=== PATIENT | female | born 1955 | race Caucasian/White ===

== ENCOUNTER 2019-07-09 13:37 | Day surgery (SDC) | payer OTHER, SELFPAY ==
--- NOTE | 2019-07-09 | PATH_ITS ---
[facility] Accession Number: [id number] . 01 Material submitted: . PART A: gastrointestinal site - GASTRIC BIOPSIES PART B: esophagus - ESOPHAGEAL BIOPSIES PART C: colon - ASCENDING COLON POLYP PART D: colon - TRANSVERSE COLON POLYP X4 PART E: colon - SIGMOID POLYPS X2 . 01 Clinical history: . B: R/O [facility]ORTH'S . 02 Diagnosis: A. Stomach, Biopsies: Body mucosa with no diagnostic abnormality. No evidence of Helicobacter organisms on H/E stain. Negative for intestinal metaplasia. Negative for dysplasia and malignancy. . B. Esophagus, Biopsies: Proximal gastric-type mucosa with mild chronic inflammation. Negative for specialized intestinal metaplasia, dysplasia or malignancy. . C. Ascending Colon, Polyp: Tubular adenoma. . D. Transverse Colon, Polyps: Fragments of tubular adenoma and fragments of hyperplastic polyp (four polyps removed). . E. Sigmoid Colon, Polyps: Tubular adenoma x2. [facility] 07/11/2019 1105 Local . 02 Electronically signed: . Deepak Knowles MD, PhD, Pathologist NPI- [id number] . 01 Gross description: . Part A: GASTRIC BIOPSIES: Received in formalin are 2 fragment(s) of ogden, soft tissue measuring 0.3 x 0.2 x 0.2 cm to 0.2 x 0.2 x 0.2 cm submitted entirely in 1 cassette(s) Part B: ESOPHAGEAL BIOPSIES: Received in formalin are 2 fragment(s) of ogden, soft tissue measuring 0.3 x 0.2 x 0.1 cm to 0.1 x 0.1 x 0.1 cm submitted entirely in 1 cassette(s) Part C: ASCENDING COLON POLYP: Received in formalin are multiple fragment(s) of ogden, soft tissue measuring 1.0 x 0.6 x 0.2 cm in aggregate submitted entirely in 1 cassette(s) Part D: TRANSVERSE COLON POLYP X4: Received in formalin are multiple fragment(s) of ogden, soft tissue measuring 1.5 x 0.7 x 0.4 cm in aggregate submitted entirely in 1 cassette(s) Part E: SIGMOID POLYPS X2: Received in formalin are multiple fragment(s) of ogden, soft tissue measuring 0.6 x 0.6 x 0.3 cm in aggregate submitted entirely in 1 cassette(s) /QBJ 07/10/2019 0707 Local . 02 Microscopic: . . . . 02 Pathologist provided ICD-10: K20.9, D12.2, D12.3, D12.5 . 02 CPT . 932672, 282518, 675866, 821396, 067368 Performed at: 01 LabCounts include 234 beds at the [facility] [address] [id number] MD Sebastián Alvarez MD Phone: [phone] Performed at: 02 [facility] [address] [place] [id number] MD Taylor Merchant MD Phone: [phone]
--- NOTE | 2019-07-09 12:05 | PM.HP.1 ---
History of Present Illness History of Present Illness Date Patient Seen: 07/09/19 Chief complaint: [id number] Narrative: GE reflux with intermittent dysphagia. Also possible history of colon polyps with intermittent rectal bleeding. Exam Narrative Exam Narrative: Oropharynx free of lesions Chest clear to auscultation percussion Cardiac exam reveals no S3 or murmur Assessment & Plan Assessment & Plan narrative: One. GERD with intermittent dysphagia rule out Schatzki's ring versus peptic esophagitis. Also with underlying elevated liver chemistries rule out varices. 2. History of colon polyps need for follow-up colonoscopy. Intermittent rectal bleeding Risks, benefits, alternatives have been explained. Further recommendation will follow the results of the studies.
--- NOTE | 2019-07-09 12:07 | PM.OP.ENDO ---
Operative Date/Time/Diagnoses Date of procedure: 07/09/19 Pre-op diagnosis: See indication and findings Procedure & Clinicians Study performed: After informed consent was obtained the patient was placed in left lateral decubitus position. The video upper scope was placed into the oropharynx with the patient's help swallowed into the esophagus. The esophagus, stomach, duodenum were carefully examined. On withdrawal retroflexed view the GE junction was performed. The scope was removed. The patient tolerated procedure well. The patient was then turned and the colonoscope substituted. This was introduced the rectum slowly advanced to the cecum. Preparation was good. On slow withdrawal mucosa was carefully examined. The scope was removed. The patient tolerated the procedure well. Blood loss none Complications none Sedation Monitored anesthesia care Findings EGD 1. One 2 cm long tongue of salmon-colored mucosa above squamocolumnar junction. Two biopsies taken in 1 bottle to rule out Diallo's esophagus. 2. No evidence of esophagitis present 3. Scattered 3-4 mm polyps throughout the body of the stomach biopsied. 4. Streaky gastric erythema in the antrum. Biopsies taken to rule out Helicobacter. These biopsies were placed in the same bottle as 3. 5. Normal duodenal bulb and sweep Colonoscopy 1. Extensive sigmoid diverticulosis-is severe. 2. Ascending colon polyp approximately 5 mm Jumbo biopsy removed completely 3. Three polyps in the transverse colon ranging from 3-4 mm in size Jumbo biopsy removed completely. 4. One transverse colon polyp approximately 2 cm in size and pedunculated. This was hot snared and removed completely. All parts of the polyp were retrieved. This was same bottle as 3. 5. 5 mm sigmoid polyp Jumbo biopsy removed completely 6. 1.2 cm pedunculated sigmoid colon polyp hot snared removed completely. This was placed in the same bottle as 5. Lidia will need follow-up colonoscopy in 3 years.
[2019-07-09 14:06] VITALS: BP 187/76; PULSE 88; RESP 20; TEMP 36.8; O2SAT 96; BMI 23.3
[2019-07-09] MEDS: SODIUM CHLORIDE 0.9% 1,000 ML 42 ML IV (14:13)
[2019-07-09 15:27] VITALS: BP 152/81; PULSE 79; RESP 16; TEMP 36.3; O2SAT 99
[2019-07-09 15:30] VITALS: BP 162/74; PULSE 77; RESP 13; TEMP 36.4; O2SAT 99
[2019-07-09 15:35] VITALS: BP 159/77; PULSE 73; RESP 10; TEMP 36.3; O2SAT 98
[2019-07-09 15:57] VITALS: BP 158/76; PULSE 65; RESP 16; TEMP 36.5; O2SAT 100
== END 2019-07-09 16:12 | disposition home or self-care (01) ==
PROVIDERS: PCP Internal Medicine; Visit Provider Internal Medicine Gastroenterology
PROC: 0DJ08ZZ Inspection of Upper Intestinal Tract, Via Natural or Artificial Opening Endoscopic (ICD-10-PCS; CPT 43235; principal; 2019-07-09 15:00)
PROC: 0DJD8ZZ Inspection of Lower Intestinal Tract, Via Natural or Artificial Opening Endoscopic (ICD-10-PCS; CPT 45378; 2019-07-09 15:00)
DX: K20.9 Esophagitis, unspecified (principal); K21.9 Gastro-esophageal reflux disease without esophagitis; K57.30 Diverticulosis of large intestine without perforation or abscess without bleeding; D12.2 Benign neoplasm of ascending colon; D12.3 Benign neoplasm of transverse colon; D12.5 Benign neoplasm of sigmoid colon
CPT/HCPCS: 45385; 45380; 43239

== ENCOUNTER → 2022-01-27 13:57 | Outpatient (CLI) | payer OTHER, SELFPAY ==
[2022-01-27 17:26] LABS: COVID19 -Nasal RAPID Negative (Negative)
== END ==
PROVIDERS: PCP Internal Medicine; Visit Provider Surgery
DX: Z20.822 Contact with and (suspected) exposure to COVID-19 (principal); Z01.812 Encounter for preprocedural laboratory examination
CPT/HCPCS: 87635; C9803

== ENCOUNTER 2022-01-30 12:09 | Day surgery (SDC) | payer OTHER, SELFPAY ==
[2022-01-30] VITALS (7 sets, daily range): BP systolic 128–170; BP diastolic 68–87; PULSE 62–76; RESP 11–20; TEMP 36.3–36.7; O2SAT 98–100; BMI 24.7
--- NOTE | 2022-01-30 | PATH_ITS ---
[facility] Accession Number: [id number] No. of containers..03 Tissue . 01 Material submitted: . PART A: cecum - CECAL POLYP PART B: splenic flexure - SPLENIC FLEXURE POLYP PART C: rectosigmoid junction - RECTO-SIGMOID POLYPS . 01 Diagnosis: A. Cecum, Polyp, Biopsy: Sessile serrated adenoma. Additional levels were examined. . B. Splenic Flexure, Biopsy: Tubular adenoma. . C. Rectosigmoid Colon, Polyps, Biopsies: Hyperplastic polyps. [facility] 02/01/2022 1410 Local . 01 Electronically signed: . Taylor Merchant MD, Pathologist NPI- [id number] . 01 Gross description: . Part A: CECAL POLYP: Received in formalin is 1 fragment(s) of ogden, soft tissue measuring 0.5 x 0.3 x 0.1 cm submitted entirely in 1 cassette(s) Part B: SPLENIC FLEXURE POLYP: Received in formalin is 1 fragment(s) of ogden, soft tissue measuring 0.2 x 0.2 x 0.2 cm submitted entirely in 1 cassette(s) Part C: RECTO-SIGMOID POLYPS: Received in formalin are 2 fragment(s) of ogden, soft tissue measuring 0.2 x 0.2 x 0.2 cm to 0.1 x 0.1 x 0.1 cm submitted entirely in 1 cassette(s) /QBJ 01/31/2022 0712 Local . 01 Pathologist provided ICD-10: D12.0, D12.3 . 01 CPT . 121035, 211121, 667120 Specimen Comment: A courtesy copy of this report has been sent to [phone] Performed at: [address] [place] [address] Cytology 550 [address] [address] [facility] [place], [place], [place] [id number] MD Sebastián Alvarez MD Phone: [phone]
[2022-01-30] MEDS: SODIUM CHLORIDE 0.9% 1,000 ML 100 ML IV (13:08)
--- NOTE | 2022-01-30 13:38 | PM.HP.1 ---
History of Present Illness History of Present Illness Date Patient Seen: 01/30/22 Time Patient Seen: 13:38 Chief complaint: SDC Narrative: Personal history of colon polyps. A 1 year follow-up exam was recommended. Patient History Family & Social History Social History: household members family Tobacco & Substance use: alcohol intake current alcohol intake frequency 0-2 drinks per day Substance Use Type does not use Meds Home Medications and Allergies Home Medications Medication Instructions Recorded Confirmed Type metoprolol succinate 25 mg 25 mg PO DAILY 07/09/19 01/30/22 History tablet,extended release 24 hr pantoprazole 40 mg tablet,delayed 40 mg PO DAILY 07/09/19 01/30/22 History release triamcinolone acetonide 0.1 % 1 applic topical BID 07/09/19 01/30/22 History topical cream Allergies Allergy/AdvReac Type Severity Reaction Status Date / Time No Known Drug Allergies Allergy Verified 01/30/22 13:11 Review of Systems Review of Systems ROS: Yes All systems reviewed with the patient and are negative except as otherwise documented Exam Vital Signs (past 8 hours): - 01/30/22 13:20 Temperature 97.9 F Pulse Rate 69 Respiratory Rate 18 Blood Pressure 170/77 H Pulse Oximetry 98 Oxygen Delivery Method Room Air Oxygen Delivery Method Room Air Const General: cooperative HENMT Head: normal to inspection Eyes General: appearance normal, both eyes and all related structures Neck Neck: normal visual inspection Chest Chest: normal inspection of the chest Resp Effort & Inspection: normal respiratory effort Cardio Rate: regular rate GI Inspection: normal to inspection Skin General: no rashes or lesions noted Neuro General: patient alert and patient awake Extrem General: normal to inspection and no pedal edema Psych Appearance: grossly normal Assessment & Plan Assessment & Plan narrative: 67-year-old female with a personal history of colon polyps. Colonoscopy is pursued today. Time Spent With Patient Critical Care time: I spent a total of [] minutes of critical care time on this patient's care today; this time is exclusive of procedural time.
--- NOTE | 2022-01-30 13:40 | PM.PREOP ---
Pre-operative Note COVID-19 COVID-19 status: Negative Result date/Date tested (Pos, Neg/Pending): 01/27/22 Criteria for continued procedure: Possibility delay results in more complex future surgery or treatment Interval Note History & Physical reviewed/Exam performed by Physician: Yes Changes to H&P: No ASA Class (for procedural sedation): II
--- NOTE | 2022-01-30 14:50 | PM.OP.COLON ---
Operative Date/Time/Diagnoses Date of procedure: 01/30/22 Time of procedure: 14:50 Pre-op diagnosis: Colon polyps history Post-op diagnosis: same Procedure & Clinicians Study performed: Colonoscopy with cold forceps polypectomy and hot snare polypectomy and cold snare polypectomy Same procedure as scheduled: Yes Indications: Colon polyps history Surgeon: Reed Avila Procedure Notes SCOAP/Timeout: Done Procedure in detail: After the risks and benefits were explained, written and verbal informed consent was obtained. The patient was brought into the procedure room and placed into the left lateral decubitus position. Please see nurse planograph operator notes for sedation details. Digital rectal examination was accomplished. The scope was introduced into the patient and advanced under direct visualization to the cecum as identified by the appendiceal orifice and ileocecal valve. The scope was slowly withdrawn to carefully examine the mucosa for any defects or lesions. Comprehensive imaging was accomplished throughout the rectum including the dentate line. The colon was decompressed, the scope was then removed from the patient who tolerated the procedure well. Pediatric colonoscope Bowel prep adequate Scope withdrawal time: 16 minutes Sedation minutes: 31 Complications: none Impression: There was diverticulosis noted in the sigmoid. The patient had an exceptionally difficult navigation secondary to a tortuous colon in the sigmoid. There was a diminutive polyp in the cecum removed with cold forceps. A 2nd diminutive polyp at the splenic flexure was removed with cold forceps. At the rectosigmoid junction there was a 5 mm polyp removed with hot snare and then more distally in the rectum proper a 3-4 mm polyp removed with cold snare. These 2 were submitted together as ?rectosigmoid polyps?. Endoscopic diagnosis 1. Twisty colon 2. Diverticulosis 3. Multiple colon polyps Post-procedure Plan for aftercare: 1. Await histopathology 2. Repeat colonoscopy 3 years Disposition: PACU
== END 2022-01-30 15:30 | disposition home or self-care (01) ==
PROVIDERS: PCP Internal Medicine; Referring Provider Internal Medicine Gastroenterology; Visit Provider Internal Medicine Gastroenterology
PROC: 0DJD8ZZ Inspection of Lower Intestinal Tract, Via Natural or Artificial Opening Endoscopic (ICD-10-PCS; CPT 45378; principal; 2022-01-30 13:30)
DX: Z12.11 Encounter for screening for malignant neoplasm of colon (principal); Z86.010 Personal history of colon polyps; K57.30 Diverticulosis of large intestine without perforation or abscess without bleeding; D12.0 Benign neoplasm of cecum; D12.3 Benign neoplasm of transverse colon
CPT/HCPCS: 45385; 45380; J2704